=== PATIENT | male | born 1950 | race Asian ===

== ENCOUNTER 2019-01-27 07:00 | Day surgery (SDC) | payer MEDICARE, OTHER ==
[~2019-01-27] VITALS: Ht 166.4 cm; Wt 74.5 kg
[~2019-01-27 07:00] MED LIST: AMLO-512 PO; ATOR40TA28 PO; FAMO20 PO; GEMF600T5 PO; MELO-107 PO; SODIUM CHLORIDE 0.9% 1,000 ML IV ONE
[2019-01-27] MEDS ORDERED: SODIUM CHLORIDE 0.9% 1,000 ML IV ONE (07:35)
[2019-01-27 07:59] LABS: GLUCOMETER DEV NAME(LOC) SDS.; GLUCOSE,POINT OF CARE 109 MG/DL (70-110)
[2019-01-27] MEDS ORDERED: MIDAZOLAM HCL 2 MG/2 ML VIAL ONE (08:07)
[2019-01-27] MEDS ORDERED: FentaNYL CITRATE-PF 100 MCG/2 ML VIAL ONE (08:07)
[2019-01-27] MEDS ORDERED: METO25XL PO (08:10)
[2019-01-27] MEDS ORDERED: GLIP10 PO (08:10)
[2019-01-27] MEDS ORDERED: TAMS-1 PO (08:10)
[2019-01-27] MEDS ORDERED: METF-960 PO (08:10)
[2019-01-27] MEDS ORDERED: MethylPREDNISolone SOD SUCC 125 MG/2 ML VIAL IVP ONE (09:00)
[2019-01-27] MEDS ORDERED: MethylPREDNISolone SOD SUCC 125 MG/2 ML VIAL ONE (09:41)
[2019-01-27] MEDS ORDERED: LIDOCAINE 4% 50 ML SOLUTION TP ONE (12:00)
[2019-01-27] MEDS ORDERED: ALBUTEROL SULFATE 2.5 MG/0.5 ML NEB SOLUTION NEB ONE (12:00)
[2019-01-27] MEDS ORDERED: LIDOCAINE 2% 30 ML JELLY TP ONE (12:00)
[2019-01-27] MEDS ORDERED: BENZOCAINE 20% 50 MCG/SPRAY 57 GM TP ONE (12:00)
[2019-01-27] MEDS ORDERED: OXYGEN THERAPY IH SCH (20:00)
== END 2019-01-27 11:00 | disposition home or self-care (01) ==
LOC: SURGERY 07:00
PROVIDERS: ATTEND Internal Medicine Critical Care Medicine
DX: J39.8 Other specified diseases of upper respiratory tract (principal); J38.4 Edema of larynx; F17.210 Nicotine dependence, cigarettes, uncomplicated; E78.00 Pure hypercholesterolemia, unspecified; I10 Essential (primary) hypertension; E78.5 Hyperlipidemia, unspecified; Z98.890 Other specified postprocedural states
CPT/HCPCS: 31623; 31624; 71045; 82962; 87015; 87070; 87101; 87206; 87220; J2250; J2930; J3010; J7030; 87205

== ENCOUNTER 2024-03-28 07:00 | Day surgery (SDC) | payer MEDICARE, OTHER ==
[~2024-03-28] VITALS: Ht 165.1 cm; Wt 79.5 kg
[~2024-03-28 07:00] MED LIST changes: +AMLO-258 PO; -AMLO-512 PO; +GEMF-77 PO; -GEMF600T5 PO; +GLIP10TA10 PO; -MELO-107 PO; +METF-1211 PO; +METO25XL PO; -SODIUM CHLORIDE 0.9% 1,000 ML IV ONE; +SODIUM CHLORIDE 0.9% 1,000 ML ONE; +TAMS-1 PO
[2024-03-28] MEDS ORDERED: ALBUTEROL SULFATE 2.5 MG/0.5 ML NEB SOLUTION NEB ONE (07:01)
[2024-03-28] MEDS ORDERED: LIDOCAINE 2% 11 ML JELLY TP ONE (07:01)
[2024-03-28] MEDS ORDERED: LIDOCAINE 4% 50 ML SOLUTION TP ONE (07:01)
[2024-03-28] MEDS ORDERED: BENZOCAINE 20% 50 MCG/SPRAY 57 GM TP ONE (07:01)
[2024-03-28] MEDS ORDERED: MONT-40 PO (07:27)
[2024-03-28] MEDS ORDERED: MIDAZOLAM HCL 2 MG/2 ML VIAL ONE (07:57)
[2024-03-28] MEDS ORDERED: FentaNYL CITRATE PF 100 MCG/2 ML VIAL ONE (07:58)
[2024-03-28] MEDS: SODIUM CHLORIDE 0.9% 1,000 ML IV ONE (08:19)
[2024-03-28 08:35] LABS: GLUCOMETER DEV NAME(LOC) SDS.; GLUCOSE,POINT OF CARE 168 MG/DL (70-110)
[2024-03-28 09:25] VITALS: PULSE 71; RESP 16; O2SAT 100
[2024-03-28] MEDS ORDERED: MethylPREDNISolone SOD SUCC 125 MG/2 ML VIAL ONE (09:56)
[2024-03-28] MEDS: MethylPREDNISolone SOD SUCC 125 MG/2 ML VIAL IVP ONE (10:01)
== END 2024-03-28 11:55 | disposition home or self-care (01) ==
LOC: SURGERY 07:00
PROVIDERS: ATTEND Internal Medicine Critical Care Medicine
DX: R05.3 Chronic cough (principal); J38.4 Edema of larynx; B37.0 Candidal stomatitis; R06.2 Wheezing; R91.8 Other nonspecific abnormal finding of lung field; J84.10 Pulmonary fibrosis, unspecified; J98.8 Other specified respiratory disorders; I51.9 Heart disease, unspecified; I70.0 Atherosclerosis of aorta; I10 Essential (primary) hypertension; E78.00 Pure hypercholesterolemia, unspecified; E11.9 Type 2 diabetes mellitus without complications; N40.0 Benign prostatic hyperplasia without lower urinary tract symptoms; Z87.891 Personal history of nicotine dependence; Z79.84 Long term (current) use of oral hypoglycemic drugs; Z79.899 Other long term (current) drug therapy
CPT/HCPCS: 82962; 87206; 87101; 87220; 87070; 31623; 31624; 94640; 71045; 87015; J3010; J2250; J2919; J7030; J7613; Z7610